=== PATIENT | male | born 1955 ===

== ENCOUNTER 2018-08-15 06:28 | Day surgery (SDC) | payer OTHER ==
[~2018-08-15 06:28] MED LIST: Buffered Lidocaine 0.9% SYRIN* 5 ML/SYR SYRINGE INTRADERM ONE; mitoMYcin PWD* 0.2 MG in Sterile Water for Inj* 1 ML OPHTHALMIC SCH
[2018-08-15] MEDS ORDERED: Triamcinolone Acetonide* 40 MG/ML 1 ML VIAL ONE (07:02)
[2018-08-15] MEDS ORDERED: Sodium Bicarbonate 8.4% SYR* 10 ML SYRINGE ONE (07:02)
[2018-08-15] MEDS ORDERED: Lidocaine 2% PF* 10 ML AMP ONE (07:02)
[2018-08-15] MEDS ORDERED: Atropine 1% OPHTH.SOL* 2 ML BOT - 2 ML ONE ×2 (07:03→08:44)
[2018-08-15] MEDS ORDERED: Acetylcholine 1:100 OPTH* OPHTH.SOLN ONE (07:03)
[2018-08-15] MEDS ORDERED: Lidocaine 2% EPI 1:200000 MPF*10-20 ML VIAL ONE (07:03)
[2018-08-15] MEDS ORDERED: BSS OPTH.SOL* BTL ONE (07:03)
[2018-08-15] MEDS ORDERED: Povidone Iodine 5% OPTH* 30 ML BTL ONE (07:04)
[2018-08-15] MEDS ORDERED: Hyaluronidase OVINE* 200 UNIT/ML ML SUBCUT ONE (07:04)
[2018-08-15] MEDS ORDERED: Neomycin/Polymy/Dex OPTH.SUSP* MAXITROL 0.1% 5 ML ONE (07:04)
[2018-08-15] MEDS ORDERED: Midazolam* 1 MG/ML 2 ML VIAL (2 MG) ONE (07:34)
[2018-08-15] MEDS ORDERED: fentaNYL* 50 MCG/ML 2 ML VIAL (100 MCG VIAL) ONE (07:34)
[2018-08-15] MEDS ORDERED: Lidocaine 2% PF * 5 ML VIAL ONE (07:40)
[2018-08-15] MEDS ORDERED: Propofol* 10 MG/ML 20 ML BTL IV PUSH ONE (07:40)
[2018-08-15 08:38] VITALS: BP 124/74
--- NOTE | 2018-08-15 23:34 | OP ---
DATE OF OPERATION: 08/15/18 [facility] DATE OF : 51 SURGEON: Clint Orozco MD ANESTHESIA: Local with MAC. PRE-OP DIAGNOSIS: Uncontrolled glaucoma, left eye. POST-OP DIAGNOSIS: Uncontrolled glaucoma, left eye. OPERATIVE PROCEDURE: Trabeculectomy, left eye. COMPLICATIONS: None. DESCRIPTION OF PROCEDURE: The patient was given retrobulbar anesthesia in the operating room 2% lidocaine with epinephrine 50:50 mixture with 0.25 of Marcaine , Vitrase and sodium bicarb 4.5 cc injected into the muscle cone without difficulty. Eye was prepped and draped in the usual sterile fashion. Lid speculum was placed. A 6-0 silk traction suture placed through the superior cornea and the eye rotated inferiorly. A fornix-based conjunctival peritomy was performed with Carmelo scissors centered at the 1 o'clock position. Mitomycin-C 0.2 mg/mL was placed subtenon for 90 seconds and thoroughly irrigated with balanced salt solution. A triangular limbal base half scleral thickness corneal flap made with a crescent blade and a 75 blade. Paracentesis incision made at the 4 o'clock position with 75 blade. Anterior chamber entered with 3-mm keratome. Miochol was then irrigated into the anterior chamber. A 3 x 1 mm trabecular block excised using a Rachel punch. Peripheral iridectomy performed with Vannas scissors. DisCoVisc placed in the anterior chamber. Scleral flaps sutured with two 10-0 nylon interrupted sutures. The conjunctiva was then closed using a running locking 10-0 nylon interrupted suture along the limbus and then 9-0 Vicryl along the edges. The traction suture removed. Topical Maxitrol and atropine were given and then the eye patched. [id number]/[facility] #: [id number] [facility]
== END 2018-08-15 08:54 | disposition home or self-care (01) ==
LOC: OREAST 06:28
PROVIDERS: ATTEND Specialist
DX: H40.1123 Primary open-angle glaucoma, left eye, severe stage (principal); H35.371 Puckering of macula, right eye; Z87.891 Personal history of nicotine dependence; N40.1 Benign prostatic hyperplasia with lower urinary tract symptoms; I47.1 Supraventricular tachycardia; R06.02 Shortness of breath; G47.33 Obstructive sleep apnea (adult) (pediatric); M54.5 Low back pain
CPT/HCPCS: A9270-GY; J2001; J2250; J2704; J3010; J3301; J3471; J9280